=== PATIENT | male | born 1990 | race Caucasian/White ===

== ENCOUNTER 2025-01-26 13:04 | Day surgery (SDC) | payer BC ==
[2025-01-25 10:56] VITALS: BMI 34.9
[2025-01-26] MEDS: IV FLUID CONTINUATION 1,000 ML IV ONE (13:43)
[2025-01-26 14:05] VITALS: TEMP 97.5
[2025-01-26] MEDS: LACTATED RINGERS 1,000 ML IV SCH (14:08)
[2025-01-26] MEDS ORDERED: PROPOFOL 10 MG/ML 20 ML VIAL IV ONE (15:11)
--- NOTE | 2025-01-26 15:14 | P.GSHP ---
History of Present Illness H&P Date: 01/26/25 Chief Complaint: Rectal bleeding, change in bowel habits 34-year-old male here for colonoscopy. Patient says he sees frequent bleeding when wiping. Bright red red in color. No spontaneous bleeding. Frequent loose stools 4-5 times per day. Symptoms started about a year ago. Sometimes feels a small lump at the anus when wiping but not usually. No family history of colon cancer. Says he feels raw when he is wiping. Past Medical History Additional Past Medical History / Comment(s): FREQ. URINATION AND DIARRHEA History of Any Multi-Drug Resistant Organisms: MRSA Date of last positivie culture/infection: AGE 18 MDRO Source:: RT HAND Additional Past Surgical History / Comment(s): RT HAND FOR MRSA. WISDOM TEETH REMOVED UNDER ANESTHESIA Past Anesthesia/Blood Transfusion Reactions: No Reported Reaction Smoking Status: Former smoker - Past Family History Father Family Medical History: Cancer Medications and Allergies Home Medications Medication Instructions Recorded Confirmed Type Nicotine 21Mg/24Hr Patch [Habitrol] 1 each TRANSDERM DAILY 01/25/25 01/26/25 History Sertraline [Zoloft] 50 mg PO DAILY 01/25/25 01/26/25 History Allergies Allergy/AdvReac Type Severity Reaction Status Date / Time No Known Allergies Allergy Verified 01/25/25 10:50 Surgical - Exam Vital Signs Temp Pulse Resp BP Pulse Ox 97.5 F L 69 16 124/84 97 01/26/25 14:02 01/26/25 14:02 01/26/25 14:02 01/26/25 14:02 01/26/25 14:02 Physical exam: General: Well-developed, well-nourished HEENT: Normocephalic, sclerae nonicteric Abdomen: Nontender, nondistended Extremities: No edema Neuro: Alert and oriented Assessment and Plan (1) Rectal bleeding Narrative/Plan: Will proceed with colonoscopy at this time. Current Visit: Yes Status: Acute Code(s): K62.5 - HEMORRHAGE OF ANUS AND RECTUM SNOMED Code(s): 13644858
--- NOTE | 2025-01-26 15:29 | P.PCN ---
Date of Procedure: 01/26/25 Procedure(s) Performed: PREOPERATIVE DIAGNOSIS: Change in bowel habits, rectal bleeding POSTOPERATIVE DIAGNOSIS: Normal colon, small posterior anal fissure PROCEDURE: Colonoscopy with biopsy ANESTHESIA: MAC SURGEON: Arnol Borrero M.D. SPECIMENS: Random colon ENDOSCOPIC PROCEDURE: The patient was placed on the endoscopy table in the left decubitus position. The Olympus colonoscope was inserted into the anus and passed under direct visualization to the base of the cecum. The appendiceal orifice was visualized. From that point the scope was slowly withdrawn inspecting all surfaces carefully. There were no neoplastic inflammatory or polypoid lesions throughout the cecum, ascending, transverse, descending, sigmoid and rectum. There was no visible diverticulosis noted. Digital rectal examination revealed a posterior anal fissure. This could have been the source of recent bleeding. The patient was taken to the recovery room in stable condition per anesthesia guidelines. RECOMMENDATIONS: Await biopsy results. Will call in a prescription for topical cream after biopsy is back.
[2025-01-26 15:50] VITALS: BP 111/57; PULSE 66; RESP 16
== END 2025-01-26 16:06 | disposition home or self-care (01) ==
LOC: ORWHC2ENDO 13:04
PROVIDERS: ATTEND Surgery
DX: K60.2 Anal fissure, unspecified (principal); Z87.891 Personal history of nicotine dependence
CPT/HCPCS: 45380; J2704; 88305